=== PATIENT | female | born 1935 | race Caucasian/White ===

== ENCOUNTER 2016-09-22 15:53 | Emergency (ER) | payer MEDICARE, OTHER ==
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
== END 2016-09-22 17:07 | disposition disaster alternative care site (69) ==
LOC: GACC 15:53
DX: S32.039A Unspecified fracture of third lumbar vertebra, initial encounter for closed fracture (principal); I10 Essential (primary) hypertension; E78.00 Pure hypercholesterolemia, unspecified; E87.6 Hypokalemia; Z90.49 Acquired absence of other specified parts of digestive tract; Z88.2 Allergy status to sulfonamides; Z98.890 Other specified postprocedural states; Z79.899 Other long term (current) drug therapy; Z79.82 Long term (current) use of aspirin; X50.0XXA Overexertion from strenuous movement or load, initial encounter

== ENCOUNTER 2016-09-26 20:44 | Inpatient (IN) | payer MEDICARE, OTHER ==
[~2016-09-26] VITALS: Ht 149.9 cm; Wt 58.7 kg
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
--- NOTE | ~2016-09-26 | DS ---
PATIENT'S NAME: LA BLUNT [facility] AGE: 81 Y [address] ROOM: [address] [place], [place] [address] LOCATION: [facility] ADMIT DATE: 09/27/2016 Discharge Summary DISCHARGE DATE: 09/29/2016 FAMILY PHYSICIAN: Kip Mcgrath MD ATTENDING PHYSICIAN: Cuca Morales HISTORY OF PRESENT ILLNESS: This is an 81-year-old female with a past medical history of hypertension who was admitted for vertigo, nausea, vomiting, abdominal pain, and intractable lower lumbar pain. For her vertigo, a CT head was done and that was negative. An MRI was done to rule out any cerebellar CVA and that was also negative. Her vertigo resolved when she took few Meclizine. In view of her nausea, vomiting, and abdominal pain, she had a blackwell CT and it is negative. Her lab work is pretty benign. She was started on Protonix for possible gastritis and the nausea, vomiting, abdominal pain also resolved. In view of her intractable lower back pain, she also had a blackwell scan. It was found that she has an L3 fracture. Neurosurgery was consulted and she had a vertebroplasty. After vertebroplasty, the patient was very stable and pain has improved dramatically and she was stable for discharge. The patient is to follow up with her PCP in 1 week and Neurosurgery as scheduled. PHYSICAL EXAMINATION: VITAL SIGNS: At the time of discharge, the patient's vitals were, the patient is afebrile, blood pressure is 130s/80s, heart rate is 70s to 80s. GENERAL: The patient is alert, awake, oriented. She is in no acute distress. LUNGS: Sounds are clear. No crackles. No wheezing. HEART: Sounds are regular rate and rhythm. No rubs, no murmurs present. ABDOMEN: At the time of discharge also, there is no abdominal tenderness, no epigastric tenderness, no guarding, no rigidity. Bowel sounds are within normal limits. EXTREMITIES: No pedal edema. NEUROLOGIC: She is grossly normal. No deficits as such. PSYCHIATRIC: She is alert, awake, oriented. She has the ability to make decisions and her own care. DISCHARGE MEDICATIONS: She is to resume her home medications. MD TOMAS ARITA/rosalina PATIENT'S NAME: LA BLUNT [facility] AGE: 81 Y [address] ROOM: [place] [address] [facility] AD[facility] DATE: 09/27/2016 Discharge Summary DISCHARGE DATE: 09/29/2016 FAMILY PHYSICIAN: Kip Mcgrath MD ATTENDING PHYSICIAN: Cuca Morales /[id number] d: 10/01/16 0154 t: 10/03/16 1331, DISCHARGE SUMMARY
--- NOTE | ~2016-09-26 | ER ---
PATIENT'S NAME: [facility] AGE: 81 Y [address] ROOM: [place] [address] LOCATION: [facility] ADMIT DATE: 09/27/2016 ER/Outpatient Report DISCHARGE DATE: FAMILY PHYSICIAN: JESIKA MCGRATH MD ATTENDING PHYSICIAN: Cuca MORALES Time of Arrival: 0 hours. Time of Evaluation: 0 hours. CHIEF COMPLAINT: Dizziness. HISTORY OF PRESENT ILLNESS: The patient is an 81-year-old female, who presents to the emergency department today with a chief complaint of dizziness. She reports this started 1 hour prior to arrival. She reports it is worse when she turns her head to the left, and only when she turns to her head to the left. She does report nausea and vomiting with it. She has complaints of some left lower quadrant abdominal pain as well. It is sharp. It is currently mild in severity. She denies any chest pain. No shortness of breath. No cough. No fevers or chills. No troubles urinating. Denies any headache. The patient was recently seen and evaluated here in the emergency department. Apparently, she was carrying a 50-pound air conditioner when her back gave out. She was diagnosed with a L3 compression fracture. PAST MEDICAL HISTORY: Hypertension, dyslipidemia, L3 compression fracture. PAST SURGICAL HISTORY: Tonsillectomy, appendectomy, bladder, carpal tunnel. SOCIAL HISTORY: The patient denies any tobacco, alcohol, or illicit drug use. Lives with her daughter in [place]. ALLERGIES: TO CODEINE AND SULFA. MEDICATIONS: Please see list. PRIMARY CARE DOCTOR: Dr. Jesika Mcgrath. REVIEW OF SYSTEMS: PATIENT'S NAME: [facility] AGE: 81 Y [address] ROOM: [place] [address] LOCATION: [facility] ADMIT DATE: 09/27/2016 ER/Outpatient Report DISCHARGE DATE: FAMILY PHYSICIAN: JESIKA MCGRATH MD ATTENDING PHYSICIAN: Cuca MORALES All systems are reviewed by myself and are negative with the exception of those discussed in the HPI and past medical history. PHYSICAL EXAMINATION: VITAL SIGNS: Weight 59.3 kg, blood pressure 192/91, pulse 78, respiratory rate 20, temperature 97.6, oxygen saturation 88% on room air. GENERAL: The patient is an 81-year-old female, who appears stated age, in [id number] acute distress secondary to vertigo. HEENT: Normocephalic, atraumatic. Pupils with horizontal nystagmus bilaterally. TMs are clear. Oropharynx is clear. NECK: Supple. There is no nuchal rigidity. CARDIOVASCULAR: Regular rate and rhythm. No murmurs, rubs, or gallops. LUNGS: Clear to auscultation bilaterally. No wheezes, rales, or rhonchi. ABDOMEN: Soft with wtle-vy-eoemrycy left lower quadrant tenderness to palpation. No rebound, rigidity, or guarding. Positive bowel sounds. MUSCULOSKELETAL: The patient moves all 4 extremities. SKIN: Warm and dry. There are no rashes or lesions noted. LABORATORY DATA AND X-RAYS: CT scan of the brain is obtained. I have discussed results with the radiologist. It shows no acute process. CMP: Sodium 2.5. LFTs are normal. CBC is normal. CT scan of the abdomen and pelvis is obtained. There is no diverticulitis or bowel obstruction. There is moderate hiatal hernia. There is subacute L3 compression fracture. There is severe diverticulosis without diverticulitis. IMPRESSION: 1. Vertigo. 2. Acute L3 compression fracture. 3. Hypokalemia. 4. Accelerated hypertension. 5. Severe diverticulosis without diverticulitis. 6. Initial visit. EMERGENCY DEPARTMENT COURSE: The patient was brought back to the examination room. Seen and evaluated by myself. IV is established. Laboratory analysis and imaging are obtained as described above. The patient was given Valium 2.5 mg IV as well as 25 mg of meclizine p.o. Results of tests here returned. She was started on 20 mEq of IV potassium as well as 60 mEq of p.o. potassium. Her vertigo symptoms continued. She was given another Valium 2.5 mg IV. We have attempted to ambulate the patient. She continues to have vertigo. She was given 0.5 mg of Dilaudid IV for pain. I have discussed results with the patient and family. She is unable to ambulate at this time due to the vertigo. I have contacted Dr. Morales with the Hospitalist Service. He has seen and evaluated the PATIENT'S NAME: LA BLUNT [facility] AGE: 81 Y [address] ROOM: [address] [place], [place] [address] [facility] ADMIT DATE: 09/27/2016 ER/Outpatient Report DISCHARGE DATE: FAMILY PHYSICIAN: JESIKA MCGRATH MD ATTENDING PHYSICIAN: Cuca MORALES patient down here in the emergency department and does agree to accept the patient for further evaluation, treatment, and management. DISPOSITION: The patient is admitted under the care of Hospitalist Service in stable condition. DO TIFF MARS/debil /[id number] P d: 09/27/16 0223 t: 09/29/16 0633, OUTPATIENT REPORT
--- NOTE | ~2016-09-26 | HP ---
PATIENT'S NAME: [facility] AGE: 81 Y [address] ROOM: [place] [address] LOCATION: [facility] ADMIT DATE: 09/27/2016 History & Physical DISCHARGE DATE: FAMILY PHYSICIAN: JESIKA HSU MD ATTENDING PHYSICIAN: Cuca GREGORY DATE OF SERVICE: CHIEF COMPLAINT: Back pain. HISTORY OF PRESENT ILLNESS: The patient is an 81-year-old female with a past medical history of benign positional vertigo, hypertension, and recent diagnosis of L3 acute compression fracture, who presents here with worsening of back pain and vertigo. The patient was seen in our emergency department on with a complaint of back pain after she experienced back pain carrying an AC unit. The patient was seen in the emergency department and had a CT of lumbar that showed L3 mild inferior endplate compression fracture which is probably acute and chronic T12 and L4 fractures. The patient was discharged home with [place]. However, the patient could not tolerate [place] due to nausea, and the patient continued to have back pain 12/13 and also affected her activity of daily life. However, today she also complained of vertigo. She reports that she had intermittent vertigo that lasts for few seconds and is exacerbated by head movement. The patient has a history of benign positional vertigo and claims that she was told to do certain maneuvers which I believe is an Deepthi maneuver to fix her vertigo. The patient reports that her vertigo worsened her nausea. The patient denies chest pain, shortness of breath, abdominal pain, fever, chills, and productive cough. PAST MEDICAL HISTORY: Hypertension, hyperlipidemia, and history of lumbar fracture. PAST SURGICAL HISTORY: Tonsillectomy, appendectomy, and carpal tunnel repair. FAMILY HISTORY: She reports that mom, father, and brother had history of heart disease and her sister has history of SLE. SOCIAL HISTORY: She denies smoking or drinking and has 5 daughters. MEDICATIONS: PATIENT'S NAME: [facility] AGE: 81 Y [address] ROOM: [place] [address] LOCATION: [facility] ADMIT DATE: 09/27/2016 History & Physical DISCHARGE DATE: FAMILY PHYSICIAN: JESIKA HSU MD ATTENDING PHYSICIAN: Cuca GREGORY 1. Aspirin 81 mg. 2. Multivitamin. 3. Ibuprofen. 4. KCl 10 mEq x1. 5. Terazosin 5 mg. 6. Simvastatin 10 mg. 7. Hydrochlorothiazide 25 mg daily. REVIEW OF SYSTEMS: All systems have been reviewed and are negative except for what I mentioned in the HPI. PHYSICAL EXAMINATION: VITAL SIGNS: Stable. GENERAL APPEARANCE: The patient is alert and awake, in no acute distress currently. HEAD: Normocephalic, atraumatic. EYES: Extraocular muscles are intact. MOUTH: Moist oral mucosa. EARS: No ear discharge. NOSE: No nasal discharge. HEART: Regular rate and rhythm. LUNGS: Clear to auscultation bilaterally. ABDOMEN: Soft, nontender, and nondistended. Bowel sounds present. SKIN: Warm to touch. MUSCULOSKELETAL: Pain in the lumbar with point tenderness. PLANT DIRECTOR: The patient is alert and oriented x3. Motor and sensory grossly intact. The patient's vertigo initiated when the patient moved her head to the left. LABORATORY DATA: White blood cell count of 10, hemoglobin 14.6, and platelets of 433. Glucose of 138, BUN of 18, creatinine 0.7, sodium of 137, potassium of 2.5, and CO2 of 30. IMAGING: CT brain without contrast shows no acute abnormality. ASSESSMENT AND PLAN: 1. Intractable pain secondary to compression fracture of L3. The patient failed outpatient treatment with [place] as an outpatient. The patient was given Dilaudid 0.5 mg in the emergency department with adequate pain control. The patient currently rates the pain 4/10, initially presented with 10/10. To continue Dilaudid 0.5 mg every 3 hours. Also to consider a neurosurgical consult in the morning for possible kyphoplasty treatment PATIENT'S NAME: LA BLUNT [facility] AGE: 81 Y [address] ROOM: [address] [address] [facility] AD[facility] DATE: 09/27/2016 History & Physical DISCHARGE DATE: FAMILY PHYSICIAN: JESIKA HSU MD ATTENDING PHYSICIAN: Cuca GREGORY for the lumbar compression fracture. 2. Hypokalemia, etiology secondary to hydrochlorothiazide use, currently being supplemented with p.o. and IV. We will repeat potassium in the morning. We will discontinue the hydrochlorothiazide and start the patient on low-dose amlodipine 5 mg daily. 3. Hypertension, stable. 4. Hyperlipidemia. Continue simvastatin. 5. Vertigo secondary to benign positional vertigo. To continue meclizine as needed. 6. Hypomagnesemia. Magnesium 1.6, etiology secondary to hydrochlorothiazide. We will supplement and check magnesium in the morning. Greater than 40 minutes was spent on the patient's care. Greater than 50% of time was spent on discussion of outpatient presentation. Assessment and plan was discussed with the patient and daughter. All questions were answered with satisfaction. Also, discussed with Dr. Peña. We will admit the patient as an inpatient as she failed outpatient treatment. Code status discussed on admission, full code. MD JEFF RAMIREZ/rosalina /[id number] D: [id number] T: [id number] HISTORY & PHYSICAL
[2016-09-26 21:02] LABS: BASOPHIL % 0.3 %; EOSINOPHIL % 0.3 %; HEMATOCRIT 41.1 % (30.0-46.0); HEMOGLOBIN 14.6 g/dL (10.0-15.0); IMMATURE GRANULOCYTE # 0.1 K/uL (0.0-0.3); IMMATURE GRANULOCYTE % 0.5 %; LYMPHOCYTE # 1.4 K/uL (0.8-4.0); LYMPHOCYTE % 14.3 %; MCH 31.1 pg (27.0-34.0); MCHC 35.5 gm/dL (32.0-36.5); MCV 87.4 fl (83.0-98.0); MONOCYTE # 0.9 K/uL (0.0-1.0); MONOCYTE % 9.4 %; MPV 9.5 fl (9.4-12.4); NEUTROPHIL # (ANC) 7.5 K/uL (1.8-7.8); NEUTROPHIL % 75.2 %; NRBC % 0 /100WBC (0-0.00); PLATELET COUNT 233 K/uL (150-450); RDW-CV 12.4 % (11.9-14.6)
[2016-09-26 21:21] LABS: ALBUMIN 3.5 gm/dL (3.5-5.0); ANION GAP 11.5 (10.0-19.0); CALCIUM 9.4 mg/dL (8.5-10.5); CREATININE 0.7 mg/dL (0.5-1.1); TOTAL BILIRUBIN 0.5 mg/dL (0.0-1.5); TOTAL PROTEIN 7.9 g/dL (6.0-8.4)
[2016-09-26 21:22] LABS: POTASSIUM 2.5 mMol/L (3.7-5.1)
[2016-09-27] MEDS ORDERED: ASPIRIN LO-DOSE81 MG PO (00:41)
[2016-09-27] MEDS ORDERED: MULTIPLE VITAM1 EACH PO (00:42)
[2016-09-27] MEDS ORDERED: IBUPROFEN200 MG PO (00:43)
[2016-09-27] MEDS ORDERED: K-TAB 10MEQ10 MEQ PO (00:44)
[2016-09-27] MEDS ORDERED: ZOCOR10 MG PO (00:45)
[2016-09-27] MEDS ORDERED: HYTRIN UD5 MG PO (00:45)
[2016-09-27] MEDS ORDERED: HYDROCHLOROTHIA25 MG PO (00:46)
--- NOTE | 2016-09-27 01:41 | NUR ---
PATIENT ARRIVED TO FLOOR AROUND 0010 VIA CART FROM ER. PATIENT WAS BROUGHT INTO THE ER THIS EVENING VIA EMT AFTER HAVING C/O OF NAUSEA, WEAKNESS, AND DIZZINESS. PATIENT STATES IT FELT LIKE THE ROOM WAS SPINNING.PATIENT RECENTLY ON THE 09/22 HAD L3 COMPRESSION FRACTURE. WAS TALKING PAIN MEDS UP UNTIL YESTERDAY WHEN SHE STOPPED TAKING THEM DUE TO NAUSEA. A/0X3. AFEBRILE. HR 74 98% ON 2L. 156/72. NO C/O OF PAIN AT THIS TIME. JUST DIZZY WITH REPOSITIONING. IV TO R) AC INFUSING KCL. SAW PATIENT DOWN IN ER AND WROTE ORDERS. CONSULT NEUROSURGERY IN THE AM FOR THE L3 COMPRESSION FRACTURE POSSIBLE KHYPHOPLASTY EVALUATION.
[2016-09-27 04:49] LABS: ALBUMIN 3.3 gm/dL (3.5-5.0); CALCIUM 8.9 mg/dL (8.5-10.5); TOTAL PROTEIN 7.5 g/dL (6.0-8.4)
[2016-09-27 04:54] LABS: MAGNESIUM 3.3 mg/dL (1.8-2.6); TOTAL BILIRUBIN 0.7 mg/dL (0.0-1.5)
--- NOTE | 2016-09-27 05:50 | NUR ---
Significant Event: A/0X3. RESTED IN BED ALL OF SHIFT. TURNS SELF. AFEBRILE. VSS ON RA. IV TO R) AC SL. PATIENT HAD A K LEVEL OF 2.5 GAVE 60 MEQ KCL PO AND 20 MEQ KCL PO. HAD A MG LEVEL OF 1.6. GAVE 2 GRAMS OF MG. LABS THIS AM. DENIES PAIN. CONSULT FOR PT/OT AND NEUROSURGERY THIS AM. Follow up: CONTINUE WITH PLAN OF CARE.
--- NOTE | 2016-09-27 16:24 | NUR ---
Significant Event: Patient is A/O x3. VSS. Complains of dizziness and "room spinning" as well as pain in the lower back - L3 fx, Dr. Olmstead to consult (notified) for possible khypholplasty. Pt had Antivert at 1437 and [place] at 1513 both exhibiting relief. Pt on room air - sats have been low 90's consistently. IV to the RT AC flushes well, with good blood return. 1PA up to BSCx2, Ambulated to bathroom x1 - patient denied dizziness at this time. Patient left for MRI Brain at 1635. Follow up: MRI results, continuum of care.
--- NOTE | 2016-09-27 17:15 | NUR ---
Introduced self and role of care management to patient. She lives in [place] with her oldest daughter, Yin. She plans home when ready for discharge. She does not use a walker at home, but she says therapy told her she should. She has a large walker in the garage but says it is to big for her home. She says she has used [employer] and will have her daughter check there for a walker. She says they set the home up well when her was alive. She has a ramp into the house. Grab bars in the bathroom and sturdy handrails on both side of the stairs to the basement. She says her daughter works a few hours each day, but has other family in town if she needs anything. Says they had HHC for her but doesn't think she will need it. Will follow.
--- NOTE | 2016-09-28 03:50 | NUR ---
Significant Event: A/0X3. RESTED IN BED ALL OF SHIFT. TURNS SELF. AFBERILE. VSS ON RA. NORCO GIVEN X1 FOR LOWER BACK PAIN. PATIENT WAS ABLE TO FIND RELIEF AND NO C/O OF PAIN THE REST OF THE SHIFT. PATIENT HAS RESTED COMFORTABLY. 1 ASSIST WITH WALKER TO BR. NO C/O OF DIZZINESS WITH STANDING OR POSTIONING THIS SHIFT. IV TO R) AC SL. NO C/O OF NAUSEA THIS SHIFT. NO BM. VOIDS FINE. Follow up: CONTINUE WITH PLAN OF CARE. OBASI STILL NEEDS TO SEE PATIENT.
--- NOTE | 2016-09-28 16:34 | NUR ---
Significant Event: Patient is A/O x 3. VSS. 1PA. No C/O dizziness. Pt has lower back pain. Kyphoplasty of the L3 vertebrae scheduled for 1500 tomorrow (09/29). Patient has been resting comfortably in bed, Pain when sitting in chair. Last [place] given at 1505. No BM this shift. SBP 130's - 140's. Sat's in low 90's. Patient needs encouragement for meals and hygiene practices. Follow up: Continue plan of care.
[2016-09-29 04:44] LABS: HEMATOCRIT 37.3 % (30.0-46.0); HEMOGLOBIN 12.6 g/dL (10.0-15.0); MCH 31.1 pg (27.0-34.0); MCHC 33.8 gm/dL (32.0-36.5); MPV 9.6 fl (9.4-12.4); RBC 4.05 M/uL (3.00-5.00); RDW-CV 12.7 % (11.9-14.6); WBC 8.4 K/uL (4.0-11.0)
[2016-09-29 04:46] LABS: MCV 92.1 fl (83.0-98.0)
--- NOTE | 2016-09-29 04:46 | NUR ---
Patient is A/O. VSS on RA. Lung sounds clear, bowel sounds present. No BM. No c/o nausea, vomiting or vertigo. c/o pain in lower back but refused pain medicine. 4 voids. SBA with walker and gait belt. SLIV to right AC. NPO at 0600 for vertebroplasty at 1500. Possible d/c after procedure.
[2016-09-29 04:53] LABS: INR - (THERAPEUTIC) 0.97 (0.92-1.07); PROTIME 10.2 SECONDS (9.8-11.4)
[2016-09-29 04:56] LABS: ANION GAP 8.5 (10.0-19.0); CALCIUM 8.3 mg/dL (8.5-10.5); CREATININE 0.8 mg/dL (0.5-1.1); PHOSPHORUS 2.3 mg/dL (2.5-4.9); POTASSIUM 3.5 mMol/L (3.7-5.1)
--- NOTE | 2016-09-29 12:18 | NUR ---
Introduced self and role of care management to pt. She is hoping for home later today after kyphoplasty. She lives with her daughter and denies the need for hhc at this time. IMM signed. Will assist as needed.
[2016-09-29] MEDS ORDERED: NORCO 5-325 TA1 EACH PO (18:25)
[2016-09-29] MEDS ORDERED: ANTIVERT **IA12.5 MG PO (18:26)
--- NOTE | 2016-09-29 18:38 | NUR ---
Significant Event: A/Ox3, only complains of pain with movement and sitting. Has refused pain meds all shift. Down for vertrboplasy at 1500, back at 1730. Orders to d/c home tonight if tolerating sitting/walking with minimal pain. VSS. Up with 1 assist. Follow up: continue plan of care.
== END 2016-09-29 19:45 | disposition disaster alternative care site (69) | DRG 517 ==
LOC: GMED 20:44 → GPCU 09-27 00:12
PROVIDERS: Emergency Medicine; Neurological Surgery; Radiology Diagnostic Radiology; ADMIT Internal Medicine
PROC: 0QU03JZ Supplement Lumbar Vertebra with Synthetic Substitute, Percutaneous Approach (ICD-10-PCS; principal; 2016-09-28)
DX: S32.000A Wedge compression fracture of unspecified lumbar vertebra, initial encounter for closed fracture (principal); E83.42 Hypomagnesemia; I10 Essential (primary) hypertension; E87.6 Hypokalemia; E78.5 Hyperlipidemia, unspecified; Z79.82 Long term (current) use of aspirin; H81.10 Benign paroxysmal vertigo, unspecified ear; K29.70 Gastritis, unspecified, without bleeding
CPT/HCPCS: C1713; J0690; J1170; J1650; J3360; J3475; J3480; J7030; J7040; J7050

== ENCOUNTER → 2016-09-26 | Outpatient (CLI) | payer MEDICARE, OTHER ==
[~2016-09-26] MED LIST: ANTIVERT **IA12.5 MG PO; ASPIRIN LO-DOSE81 MG PO; HYDROCHLOROTHIA25 MG PO; HYTRIN UD5 MG PO; IBUPROFEN200 MG PO; K-TAB 10MEQ10 MEQ PO; MULTIPLE VITAM1 EACH PO; NORCO 5-325 TA1 EACH PO; ZOCOR10 MG PO
== END | disposition disaster alternative care site (69) ==
LOC: GAMB 20:23
DX: R42 Dizziness and giddiness (principal); M54.9 Dorsalgia, unspecified; M48.56XA Collapsed vertebra, not elsewhere classified, lumbar region, initial encounter for fracture; E78.5 Hyperlipidemia, unspecified; I10 Essential (primary) hypertension; R11.0 Nausea
CPT/HCPCS: A0422; A0425; A0427; J2405